=== PATIENT | female | born 1970 | race African-American/Black ===

== ENCOUNTER 2019-07-12 19:15 | Inpatient (IN) | payer MEDICAID ==
[~2019-07-12] VITALS: Ht 167.6 cm; Wt 113.0 kg
[~2019-07-12 19:15] MED LIST: ALBU18HF2 IH; CLON0.1T PO; DILT180C3 PO; IBUP-2028 PO; LOSA100T32 PO; NASOI BOTHNSTRLS; OMEP40CA PO
[2019-07-12] MEDS ORDERED: ONDANSETRON HCL 4MG/2ML INJ IV STA (19:44)
[2019-07-12] MEDS ORDERED: NITROGLYCERIN OINT 1GM/INCH UDPKT TD ONE (19:45)
[2019-07-12] MEDS ORDERED: ASPIRIN 81MG TABLET PO ONE (19:45)
[2019-07-12 19:59] LABS: BASOPHILS % 1.4 % (0.0-2.0); CHLORIDE 105 mEq/L (98-107); EOSINOPHILS % 1.9 % (0.0-5.0); HEMATOCRIT. 33.7 % (36.0-48.0); LYMPHOCYTES % 34.8 % (20.0-50.0); MEAN CORPUSCULAR HEMOGLOBIN 26.3 pg (28.0-32.0); MEAN CORPUSCULAR VOLUME 80.2 fL (81.0-99.0); MEAN PLATELET VOLUME 8.5 fl (7.4-10.4); MONOCYTES % 7.2 % (2.0-8.0); NEUTROPHILS % 54.7 % (40.0-76.0); PLATELET 355 x1000/uL (130-400); RED CELL DISTRIBUTION WIDTH 15.7 % (11.6-14.6)
[2019-07-12 20:02] LABS: HCG SCREEN NEGATIVE
[2019-07-12 20:03] LABS: ETHANOL BLOOD < 10 mg/dL
[2019-07-12 23:23] VITALS: BP 127/57
[2019-07-12] MEDS ORDERED: PROT40 PO (23:49)
[2019-07-12] MEDS ORDERED: METO-411 PO (23:57)
[2019-07-12] MEDS ORDERED: AMLO2.5T2 PO (23:57)
[2019-07-13] VITALS: BP 118/71
[2019-07-13] MEDS ORDERED: MORPHINE SULFATE 2 MG/ML CPJ (NOT FOR IM USE) IV PRN (00:15)
[2019-07-13 04:00] VITALS: BP 128/68
[2019-07-13] MEDS: PANTOPRAZOLE 40MG DR TABLET PO SCH (06:19)
[2019-07-13] MEDS: NITROGLYCERIN OINT 1GM/INCH UDPKT TD SCH ×3 (06:19→13:47)
[2019-07-13 07:30] LABS: BASOPHILS % 0.5 % (0.0-2.0); EOSINOPHILS % 2.1 % (0.0-5.0); HEMATOCRIT. 30.4 % (36.0-48.0); HEMOGLOBIN. 10.3 g/dL (12.0-16.0); LYMPHOCYTES % 33.9 % (20.0-50.0); MEAN CORPUSCULAR HEMOGLOBIN 27.1 pg (28.0-32.0); MEAN CORPUSCULAR VOLUME 79.6 fL (81.0-99.0); MEAN PLATELET VOLUME 8.5 fl (7.4-10.4); NEUTROPHILS % 56.5 % (40.0-76.0); PLATELET 335 x1000/uL (130-400); RED BLOOD CELL COUNT 3.81 mill/uL (4.2-5.4); RED CELL DISTRIBUTION WIDTH 15.7 % (11.6-14.6)
[2019-07-13 07:55] LABS: CHLORIDE 105 mEq/L (98-107)
[2019-07-13 08:00] VITALS: BP 119/61
[2019-07-13 08:05] LABS: LDL CHOLESTEROL 83 mg/dL (5-100)
[2019-07-13 08:06] LABS: HDL CHOLESTEROL 49 mg/dL (40-59)
[2019-07-13] MEDS: METOPROLOL TARTRATE 50MG TABLET PO SCH ×2 (08:38→21:02)
[2019-07-13] MEDS: ASPIRIN 325MG EC TABLET PO SCH (08:38)
[2019-07-13] MEDS: AMLODIPINE 2.5MG TABLET PO SCH (08:38)
[2019-07-13] MEDS: ENOXAPARIN 30MG/0.3ML SYR SUBCUT SCH ×2 (08:39→21:01)
[2019-07-13] MEDS ORDERED: LOSARTAN POTASSIUM 100 MG TABLET PO SCH ×2 (09:00→22:30)
[2019-07-13 12:00] VITALS: BP 127/61
[2019-07-13] MEDS: ACETAMINOPHEN 325MG TABLET PO PRN ×2 (12:17→21:10)
[2019-07-13 16:00] VITALS: BP 126/80
[2019-07-13 16:29] LABS: *AMPHETAMINES SCREEN URINE NEGATIVE (NEGATIVE); *BARBITURATES SCREEN URINE NEGATIVE (NEGATIVE); *COCAINE SCREEN URINE NEGATIVE (NEGATIVE)
[2019-07-13 16:30] LABS: *BENZODIAZEPINES SCREEN URINE NEGATIVE (NEGATIVE); CANNABINOID URINE SCREEN NEGATIVE (NEGATIVE); METHADONE URINE SCREEN NEGATIVE (NEGATIVE); OPIATES URINE SCREEN NEGATIVE (NEGATIVE); PHENCYCLIDINE URINE SCREEN NEGATIVE (NEGATIVE)
[2019-07-13 20:00] VITALS: BP 149/94
[2019-07-14] VITALS: BP 143/92
[2019-07-14 04:00] VITALS: BP 124/85
[2019-07-14] MEDS: PANTOPRAZOLE 40MG DR TABLET PO SCH (05:52)
[2019-07-14 06:22] LABS: CHLORIDE 107 mEq/L (98-107)
[2019-07-14 06:36] LABS: BASOPHILS % 0.8 % (0.0-2.0); EOSINOPHILS % 2.5 % (0.0-5.0); HEMATOCRIT. 31.9 % (36.0-48.0); HEMOGLOBIN. 10.7 g/dL (12.0-16.0); LYMPHOCYTES % 41.2 % (20.0-50.0); MEAN CORPUSCULAR HEMOGLOBIN 26.8 pg (28.0-32.0); MEAN CORPUSCULAR VOLUME 80.3 fL (81.0-99.0); MEAN PLATELET VOLUME 8.7 fl (7.4-10.4); NEUTROPHILS % 49.5 % (40.0-76.0); PLATELET 324 x1000/uL (130-400); RED BLOOD CELL COUNT 3.98 mill/uL (4.2-5.4); RED CELL DISTRIBUTION WIDTH 15.8 % (11.6-14.6)
[2019-07-14 08:00] VITALS: BP 113/62
[2019-07-14] MEDS: ASPIRIN 325MG EC TABLET PO SCH (08:38)
[2019-07-14] MEDS: METOPROLOL TARTRATE 50MG TABLET PO SCH (08:38)
[2019-07-14] MEDS: ENOXAPARIN 30MG/0.3ML SYR SUBCUT SCH (08:38)
[2019-07-14] MEDS: AMLODIPINE 2.5MG TABLET PO SCH (08:39)
[2019-07-14 10:43] VITALS: BP 113/62
[2019-07-14] MEDS ORDERED: FAMOTIDINE 20MG TABLET PO SCH (21:00)
== END 2019-07-14 13:12 | disposition home or self-care (01) | DRG 203 ==
LOC: ER 19:15 → 5WST 20:37 → EDBEDREQTM 20:43 → EDBEDREQ 20:43 → ENRESERV 22:46
PROVIDERS: ADMIT Internal Medicine; ATTEND Internal Medicine
DX: R07.89 Other chest pain (principal); E44.1 Mild protein-calorie malnutrition; D64.9 Anemia, unspecified; E66.9 Obesity, unspecified; I10 Essential (primary) hypertension; J45.909 Unspecified asthma, uncomplicated; K21.9 Gastro-esophageal reflux disease without esophagitis; Z82.49 Family history of ischemic heart disease and other diseases of the circulatory system; Z88.6 Allergy status to analgesic agent; Z88.0 Allergy status to penicillin; Z68.41 Body mass index [BMI] 40.0-44.9, adult; I49.8 Other specified cardiac arrhythmias
CPT/HCPCS: 36415; 71045; 80048; 80061; 80305; 80320; 83036; 83735; 83880; 84443; 84484; 84703; 93005; 93306; 99285; J1650; J2270; J2405; G0480

== ENCOUNTER 2023-10-31 19:32 | Emergency (ER) | payer MEDICAID ==
[~2023-10-31] VITALS: Ht 170.2 cm; Wt 136.5 kg
[~2023-10-31 19:32] MED LIST changes: +AMLO2.5T2 PO; -DILT180C3 PO; +DILT180C87 PO; -IBUP-2028 PO; -LOSA100T32 PO; +LOSA100T33 PO; +METO-411 PO; -OMEP40CA PO; +PROT40 PO
[2023-10-31 19:38] VITALS: BP 164/107; TEMP 98.3
[2023-10-31] MEDS ORDERED: ALBUTEROL (0.083%) 2.5MG/3ML NEB HHN STA (19:58)
[2023-10-31] MEDS ORDERED: IPRATROPIUM BROMIDE (0.02%) 0.5MG/2.5ML NEB HHN STA (19:58)
[2023-10-31] MEDS ORDERED: PREDNISONE 20MG TABLET PO STA (19:58)
[2023-10-31] MEDS ORDERED: P20 PO (20:03)
[2023-10-31 20:23] VITALS: PULSE 103; RESP 20; O2SAT 95
[2023-10-31 21:45] LABS: BG BASE EXCESS 3.1 mmol/L (-2.0-2.0); BG CARBOXYHEMOGLOBIN 0.6 % (0.5-1.5); BG FRACTION INSPIRED OXYGEN 21; BG METHEMOGLOBIN 0.4 % (0.0-1.5); BG OXYGEN SATURATION 91.9 % (92.0-98.5); BG PCO2 43.5 mmHg (35.0-45.0); BG PH 7.427 (7.350-7.450); BG PO2 61.5 mmHg (75.0-100.0); BG SAMPLE SITE RIGHT RADIAL; BG VENT MODE ROOM AIR
== END 2023-10-31 21:53 | disposition home or self-care (01) ==
LOC: ER 19:32
DX: J06.9 Acute upper respiratory infection, unspecified (principal); J45.901 Unspecified asthma with (acute) exacerbation; I10 Essential (primary) hypertension; Z79.899 Other long term (current) drug therapy
CPT/HCPCS: 94640; 82805; 82375; 99283; 36600; J7512; Z7610 ×2

== ENCOUNTER 2024-04-17 15:05 | Emergency (ER) | payer MEDICAID ==
[~2024-04-17] VITALS: Ht 157.5 cm; Wt 70.0 kg
[~2024-04-17 15:05] MED LIST changes: +P20 PO
[2024-04-17 15:08] VITALS: O2SAT 99
[2024-04-17 16:02] LABS: BASOPHILS % 1.2 % (0.0-2.0); EOSINOPHILS % 1.7 % (0.0-5.0); HEMATOCRIT. 31.7 % (36.0-48.0); HEMOGLOBIN. 10.7 g/dL (12.0-16.0); MEAN CORPUSCULAR HEMOGLOBIN 27.3 pg (28.0-32.0); MEAN CORPUSCULAR HGB CONC 33.6 g/dL (31.0-37.0); MEAN CORPUSCULAR VOLUME 81.5 fL (81.0-99.0); MEAN PLATELET VOLUME 8.9 fl (7.4-10.4); MONOCYTES % 6.3 % (2.0-8.0); NEUTROPHILS % 62.8 % (40.0-76.0); PLATELET 335 x1000/uL (130-400); RED CELL DISTRIBUTION WIDTH 15.4 % (11.6-14.6)
[2024-04-17] MEDS: SODIUM CHLORIDE 0.9% 500 ML IV ONE (16:06)
[2024-04-17 16:10] VITALS: TEMP 98.4
[2024-04-17 16:10] LABS: CHLORIDE 104 mEq/L (98-107); POTASSIUM 4.4 mEq/L (3.5-5.1); SODIUM 138 mEq/L (136-145)
[2024-04-17 16:11] LABS: CALCIUM 9.8 mg/dL (8.7-10.4); CARBON DIOXIDE 30 mEq/L (21-32)
[2024-04-17 16:16] LABS: CREATININE 0.9 mg/dL (0.6-1.0); GLUCOSE 116 mg/dL (70-105); UREA NITROGEN BLOOD 9 mg/dL (9-23)
[2024-04-17 16:17] LABS: TROPONIN I HIGH SENSITIVITY 4 ng/L (3.0-34)
[2024-04-17 18:32] LABS: TROPONIN I HIGH SENSITIVITY < 4 ng/L (3.0-34)
[2024-04-17 19:54] VITALS: BP 165/93; PULSE 66; RESP 18
== END 2024-04-17 20:54 | disposition home or self-care (01) ==
LOC: ER 15:05
DX: I10 Essential (primary) hypertension (principal); J45.909 Unspecified asthma, uncomplicated; Z88.0 Allergy status to penicillin; Z91.013 Allergy to seafood
CPT/HCPCS: 99285; 96360; 71045; 80048; 83880; 83690; 85025; 84484; 36415; 93005; J7040

== ENCOUNTER 2024-06-23 17:06 | Emergency (ER) | payer MEDICAID ==
[~2024-06-23] VITALS: Ht 167.6 cm; Wt 150.0 kg
[2024-06-23 17:08] VITALS: O2SAT 99
[2024-06-23] MEDS ORDERED: DEXAMETHASONE 10 MG/ML VIAL IM ONE (17:15)
[2024-06-23] MEDS ORDERED: DIPHENHYDRAMINE 50MG/ML VIAL IM PRN (17:15)
[2024-06-23] MEDS ORDERED: HYDRALAZINE 20MG/ML VIAL IV ONE (17:30)
[2024-06-23 19:00] VITALS: TEMP 98.4
[2024-06-23] MEDS ORDERED: CLONIDINE 0.2MG TABLET PO ONE (19:00)
[2024-06-23] MEDS: DEXAMETHASONE 10 MG/ML VIAL IM NR (19:11)
[2024-06-23] MEDS: HYDRALAZINE 20MG/ML VIAL IV NR (19:12)
[2024-06-23 19:30] LABS: EOSINOPHILS % 0.7 % (0.0-5.0); HEMOGLOBIN. 11.9 g/dL (12.0-16.0); LYMPHOCYTES % 32.6 % (20.0-50.0); MEAN CORPUSCULAR HEMOGLOBIN 26.2 pg (28.0-32.0); MEAN CORPUSCULAR HGB CONC 32.3 g/dL (31.0-37.0); MEAN PLATELET VOLUME 9.1 fl (7.4-10.4); MONOCYTES % 5.5 % (2.0-8.0); NEUTROPHILS % 59.2 % (40.0-76.0); PLATELET 420 x1000/uL (130-400); RED BLOOD CELL COUNT 4.56 mill/uL (4.2-5.4); RED CELL DISTRIBUTION WIDTH 17.4 % (11.6-14.6); WHITE BLOOD COUNT 11.9 x1000/uL (4.5-11.0)
[2024-06-23 19:33] LABS: CHLORIDE 104 mEq/L (98-107); SODIUM 139 mEq/L (136-145)
[2024-06-23 19:34] LABS: CALCIUM 9.2 mg/dL (8.7-10.4); CARBON DIOXIDE 30 mEq/L (21-32)
[2024-06-23] MEDS: CLONIDINE 0.1MG TABLET PO NR (19:34)
[2024-06-23 19:39] LABS: CREATININE 0.9 mg/dL (0.6-1.0); GLUCOSE 110 mg/dL (70-105); UREA NITROGEN BLOOD 12 mg/dL (9-23)
[2024-06-23 19:43] LABS: THYROID STIMULATING HORMONE 4.56 uIU/mL (0.55-4.78)
[2024-06-23 20:11] VITALS: BP 189/108; PULSE 85; RESP 13
== END 2024-06-23 20:39 | disposition home or self-care (01) ==
LOC: ER 17:06
DX: T78.40XA Allergy, unspecified, initial encounter (principal); J45.909 Unspecified asthma, uncomplicated; I10 Essential (primary) hypertension; E04.9 Nontoxic goiter, unspecified; Z79.899 Other long term (current) drug therapy; Z88.0 Allergy status to penicillin; X58.XXXA Exposure to other specified factors, initial encounter
CPT/HCPCS: 80048; 84443; 85025; 36415; 93971; 96372; 99285; J1100; J0360; Z7610 ×4

== ENCOUNTER 2024-11-03 18:56 | Inpatient (IN) | payer MEDICAID ==
[~2024-11-03] VITALS: Ht 172.7 cm; Wt 117.9 kg
[2024-11-03] MEDS ORDERED: CLONIDINE 0.1MG TABLET PO NR (19:30)
[2024-11-03] MEDS ORDERED: CLONIDINE 0.2MG TABLET PO NR (19:30)
[2024-11-03 20:38] LABS: BASOPHILS % 1.1 % (0.0-2.0); EOSINOPHILS % 0.9 % (0.0-5.0); HEMATOCRIT. 34.8 % (36.0-48.0); HEMOGLOBIN. 11.6 g/dL (12.0-16.0); LYMPHOCYTES % 27.3 % (20.0-50.0); MEAN CORPUSCULAR HEMOGLOBIN 27.1 pg (28.0-32.0); MEAN CORPUSCULAR HGB CONC 33.5 g/dL (31.0-37.0); MEAN CORPUSCULAR VOLUME 80.9 fL (81.0-99.0); MEAN PLATELET VOLUME 8.9 fl (7.4-10.4); MONOCYTES % 5.6 % (2.0-8.0); NEUTROPHILS % 65.1 % (40.0-76.0); PLATELET 373 x1000/uL (130-400); RED CELL DISTRIBUTION WIDTH 15.7 % (11.6-14.6); WHITE BLOOD COUNT 6.9 x1000/uL (4.5-11.0)
[2024-11-03 20:41] LABS: CHLORIDE 104 mEq/L (98-107); SODIUM 137 mEq/L (136-145)
[2024-11-03 20:42] LABS: CALCIUM 9.9 mg/dL (8.7-10.4); CARBON DIOXIDE 31 mEq/L (21-32)
[2024-11-03 20:47] LABS: CREATININE 0.9 mg/dL (0.6-1.0); GLUCOSE 121 mg/dL (70-105); UREA NITROGEN BLOOD 11 mg/dL (9-23)
[2024-11-03 20:49] LABS: ALANINE AMINOTRANSFERASE 12 IU/L (10-49); ALBUMIN 4.4 g/dL (3.2-4.8); ASPARTATE AMINOTRANSFERASE 18 IU/L (<34); BILIRUBIN TOTAL 0.4 mg/dL (0.1-1.0); PROTEIN TOTAL 8.2 g/dL (6.0-8.3)
[2024-11-04] MEDS: HYDRALAZINE 20MG/ML VIAL IV NR (02:12)
[2024-11-04] MEDS: ASPIRIN 325MG EC TABLET PO ONE (02:15)
[2024-11-04] MEDS ORDERED: METO-539 MT (08:54)
[2024-11-04 09:00] VITALS: BP 182/98; PULSE 77; RESP 18; TEMP 36.61404; O2SAT 100
[2024-11-04] MEDS ORDERED: DYZ MT (09:01)
[2024-11-04] MEDS ORDERED: CLON0.2T PO (09:01)
[2024-11-04] MEDS ORDERED: NIFE90TA60 MT (09:01)
[2024-11-04] MEDS ORDERED: IBUP-2029 PO (09:01)
[2024-11-04 09:25] VITALS: BP 182/87; PULSE 77; RESP 16; TEMP 36.6404
[2024-11-04] MEDS: TRIAMTERENE/HCTZ 37.5/25MG TABLET PO SCH (10:30)
[2024-11-04] MEDS: LOSARTAN 100 MG TABLET PO SCH (10:30)
[2024-11-04] MEDS ORDERED: CLONIDINE 0.1MG TABLET PO PRN (10:30)
[2024-11-04] MEDS: NIFEDIPINE XL 90MG TAB PO SCH (10:46)
[2024-11-04] MEDS: METOPROLOL TARTRATE 50MG TABLET PO SCH (10:46)
[2024-11-04 12:00] VITALS: BP 149/72; PULSE 72; RESP 18; TEMP 36.55848; O2SAT 99
[2024-11-04] MEDS: LORAZEPAM 1MG TABLET PO NR (14:48)
[2024-11-04 16:00] VITALS: BP 152/75; PULSE 71; RESP 17; TEMP 36.61404; O2SAT 99
[2024-11-04] MEDS: NYSTATIN 100,000 UNITS/ML 5ML UDC SSW SCH (18:14)
[2024-11-04 18:19] VITALS: BP 149/72; PULSE 72; TEMP 97.9; O2SAT 99
== END 2024-11-04 20:00 | disposition home or self-care (01) | DRG 199 ==
LOC: ER 18:56 → 8WST 11-04 02:16
PROVIDERS: ADMIT Internal Medicine; ATTEND Internal Medicine
DX: I16.0 Hypertensive urgency (principal); B37.0 Candidal stomatitis; I47.10 Supraventricular tachycardia, unspecified; E66.01 Morbid (severe) obesity due to excess calories; I10 Essential (primary) hypertension; J45.909 Unspecified asthma, uncomplicated; R13.10 Dysphagia, unspecified; Z88.0 Allergy status to penicillin; Z88.5 Allergy status to narcotic agent; Z91.018 Allergy to other foods; Z68.39 Body mass index [BMI] 39.0-39.9, adult; Z91.013 Allergy to seafood
CPT/HCPCS: 36415; 70551; 80053; 85025; 93005; 99285